=== PATIENT | female | born 1975 | race Hispanic/Latino ===

== ENCOUNTER → 2017-06-13 | Outpatient (CLI) | payer MEDICAID, SELFPAY ==
--- NOTE | 2017-06-18 14:03 | MMO ---
BILATERAL MAMMOGRAMS: HISTORY: Screening mammography. COMPARISON: 05/18/16. FINDINGS: Scattered fibroglandular densities are again demonstrated. There is no dominant mass or suspicious c alcifications. The study was evaluated with the assistance of computer-aided detection. IMPRESSION: BI-RADS category 1. Negative. Suggest routine followup. BIRADS 1: Negative Routine annual screening mammography (for women over age 40) POS: [facility]
== END ==
LOC: SCSMAMMO 09:27 → EDSTATUS 10:30 → SCSMAMMO 15:17
PROVIDERS: ATTEND Nurse Practitioner Family
DX: Z12.31 Encounter for screening mammogram for malignant neoplasm of breast (principal)
CPT/HCPCS: 77067

== ENCOUNTER 2018-06-20 09:10 | Outpatient (CLI) | payer MEDICAID ==
--- NOTE | 2018-06-30 13:18 | MMO ---
Bilateral MAMMO Bilat Screen [facility]. CLINICAL HISTORY: Patient is 43 years old and is seen for screening. The patient has no family history of breast cancer. The patient has no personal history of cancer. VIEWS: The views performed were: bilateral craniocaudal and bilateral mediolateral oblique. FILMS COMPARED: The present examination has been compared to prior imaging studies performed at [facility] on 06/13/2017, and at [facility] on 05/18/2016 and 05/25/2016. This study has been interpreted with the assistance of computer-aided detection. MAMMOGRAM FINDINGS: The breasts are heterogeneously dense, which could obscure a lesion on mammography. Finding 1: There are stable benign appearing calcifications seen in both breasts. Finding 2: There are stable focal asymmetries seen in both breasts. IMPRESSION: ALL ABOVE FINDINGS ARE BENIGN. A ROUTINE FOLLOW-UP MAMMOGRAM IN 1 YEAR IS RECOMMENDED. ACR BI-RADS Category 2 - Benign finding MAMMOGRAPHY NOTE: 1. A negative mammogram report should not delay a biopsy if a dominant of clinically suspicious mass is present. 2. Approximately 10% to 15% of breast cancers are not detected by mammography. 3. Adenosis and dense breasts may obscure an underlying neoplasm.
== END 2018-06-20 09:11 | disposition home or self-care (01) ==
LOC: SCSMAMMO 09:10
DX: Z12.31 Encounter for screening mammogram for malignant neoplasm of breast (principal)
CPT/HCPCS: 77067